=== PATIENT | male | born 1955 | race Caucasian/White ===

== ENCOUNTER → 2016-09-09 | Outpatient (CLI) | payer BC | LOC: KOH-I 11:34 | DX: J20.9 Acute bronchitis, unspecified (principal) | CPT/HCPCS: 71020 ==

== ENCOUNTER → 2021-03-27 | Outpatient (CLI) | payer MEDICARE, BC | LOC: KOH-I 09:49 | DX: M50.121 Cervical disc disorder at C4-C5 level with radiculopathy (principal); M51.14 Intervertebral disc disorders with radiculopathy, thoracic region | CPT/HCPCS: 72040; 72070 ==

== ENCOUNTER → 2021-10-22 | Outpatient (CLI) | payer MEDICARE, BC | LOC: KOH-I 14:50 | DX: M50.10 Cervical disc disorder with radiculopathy, unspecified cervical region (principal); M48.00 Spinal stenosis, site unspecified | CPT/HCPCS: 72141 ==